=== PATIENT | male | born 1980 ===

== ENCOUNTER 2020-03-11 16:37 | Emergency (ER) | payer OTHER ==
[2020-03-11 17:51] VITALS: BP 128/87
[2020-03-11] MEDS ORDERED: ACETAMINOPHEN 325 MG TABLET PO ONE (18:07)
--- NOTE | 2020-03-11 18:28 | ER Document Report ---
HPI - HPI Time Seen by Provider: 03/11/20 17:59 Course - Vital Signs Vital signs: Temp Pulse Resp BP Pulse Ox 98.3 F 81 16 128/87 H 98 03/11/20 17:49 03/11/20 17:49 03/11/20 17:49 03/11/20 17:49 03/11/20 17:49
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
== END 2020-03-12 01:30 | disposition left against medical advice (07) ==
LOC: ER 16:37
DX: M54.2 Cervicalgia (principal); R07.89 Other chest pain; V49.50XA Passenger injured in collision with unspecified motor vehicles in traffic accident, initial encounter; Z20.822 Contact with and (suspected) exposure to COVID-19; Z53.20 Procedure and treatment not carried out because of patient's decision for unspecified reasons
CPT/HCPCS: 71250; 72125; 99281